=== PATIENT | female | born 1975 | race Caucasian/White ===

== ENCOUNTER 2017-07-16 08:32 | Day surgery (SDC) | payer OTHER ==
[2017-07-16] MEDS: IV RINGERS,LACTATED 1000ML 1,000 ML IV ×2 (07:00)
[~2017-07-16 08:32] MED LIST: HYDROmorphone 2 MG/ML VIAL IV; LIDOCAINE 1% PF 2 ML VIAL. ID; MORPHINE SULFATE 2 MG/ML DISP.SYRIN. IV; ONDANSETRON PF 4 MG/2 ML VIAL. IV; fentaNYL PF VIAL 100 MCG/2 ML VIAL IV
[2017-07-16 09:32] LABS: NEG OBC UR NEG; POS OBC UR POS; U PREG PATIENT NEGATIVE (NEG)
[2017-07-16] MEDS ORDERED: fentaNYL PF VIAL 100 MCG/2 ML VIAL ×4 (10:18→12:13)
[2017-07-16] MEDS ORDERED: ONDANSETRON PF 4 MG/2 ML VIAL. ×2 (10:18)
[2017-07-16] MEDS ORDERED: LIDOCAINE 2% PF Vial for OR 5 ML VIAL. ×2 (10:18)
[2017-07-16] MEDS ORDERED: PROPOFOL 20 ML IV ×2 (10:18)
[2017-07-16] MEDS ORDERED: MIDAZOLAM HCL/PF 2 MG/2 ML VIAL. ×4 (10:18→11:42)
[2017-07-16] MEDS: BUPIVACAINE 0.5% 50 ML VIAL. ×2 (11:53)
[2017-07-16] MEDS: methylPREDNISolone ACETATE 80 MG/ML VIAL. ×2 (11:53)
[2017-07-16] MEDS ORDERED: SEVOFLURANE 16 TO 30 MINUTES. IH ×2 (12:07)
[2017-07-16] MEDS ORDERED: PROCHLORPERAZINE 10 MG/2 ML VIAL. ×2 (12:18)
[2017-07-16] MEDS: PROCHLORPERAZINE 10 MG/2 ML VIAL. IV ×2 (12:24)
[2017-07-16] MEDS: fentaNYL PF VIAL 100 MCG/2 ML VIAL IV ×4 (12:24→12:43)
[2017-07-16] MEDS ORDERED: oxyCODONE/APAP 5/325 1 TAB TABLET ×2 (12:37)
[2017-07-16] MEDS: oxyCODONE/APAP 5/325 1 TAB TABLET PO ×2 (12:43)
== END 2017-07-16 13:53 | disposition home or self-care (01) ==
LOC: SURG 08:32
DX: M75.02 Adhesive capsulitis of left shoulder (principal); Z86.69 Personal history of other diseases of the nervous system and sense organs; Z98.51 Tubal ligation status; Z86.39 Personal history of other endocrine, nutritional and metabolic disease; Z72.89 Other problems related to lifestyle; Z88.6 Allergy status to analgesic agent; Z88.2 Allergy status to sulfonamides; F17.200 Nicotine dependence, unspecified, uncomplicated
CPT/HCPCS: 20610; 81025; 97110-GP; 97162-GP; G8978-CK-GP; G8979-CK-GP; G8980-CK-GP; J0780; J1040; J2250; J2405; J2704; J3010; J3490

== ENCOUNTER 2017-07-30 08:01 | Day surgery (SDC) | payer OTHER ==
[~2017-07-30 08:01] MED LIST changes: -HYDROmorphone 2 MG/ML VIAL IV; +IV RINGERS,LACTATED 1000ML 1,000 ML IV; -MORPHINE SULFATE 2 MG/ML DISP.SYRIN. IV
[2017-07-30 08:47] LABS: NEG OBC UR NEG; POS OBC UR POS; U PREG PATIENT NEGATIVE (NEG)
[2017-07-30] MEDS ORDERED: ROPIVacaine 0.5% PF 30 ML VIAL. (09:27)
[2017-07-30] MEDS ORDERED: DEXAMETHASONE SOD PHOS 20 MG/5 ML VIAL. ×2 (09:28→11:44)
[2017-07-30] MEDS ORDERED: fentaNYL PF VIAL 100 MCG/2 ML VIAL (09:40)
[2017-07-30] MEDS ORDERED: MIDAZOLAM HCL/PF 2 MG/2 ML VIAL. (09:40)
[2017-07-30] MEDS ORDERED: PROPOFOL 20 ML IV (10:35)
[2017-07-30] MEDS ORDERED: LIDOCAINE 2% PF Vial for OR 5 ML VIAL. (10:35)
[2017-07-30] MEDS ORDERED: ONDANSETRON PF 4 MG/2 ML VIAL. (11:45)
[2017-07-30] MEDS ORDERED: PHENYLEPHRINE in 0.9% NACL PF 1 MG/10 ML SYRINGE. IV (11:45)
[2017-07-30] MEDS ORDERED: SEVOFLURANE 61 TO 120 MINUTES. IH (11:48)
[2017-07-30] MEDS: PROCHLORPERAZINE 10 MG/2 ML VIAL. IV (13:35)
[2017-07-30] MEDS: oxyCODONE/APAP 10/325 1 TAB TABLET PO (13:36)
== END 2017-07-30 14:02 | disposition home or self-care (01) ==
LOC: SURG 08:01
DX: S46.012A Strain of muscle(s) and tendon(s) of the rotator cuff of left shoulder, initial encounter (principal); M19.012 Primary osteoarthritis, left shoulder; Z90.710 Acquired absence of both cervix and uterus; I49.9 Cardiac arrhythmia, unspecified; F31.9 Bipolar disorder, unspecified; F20.9 Schizophrenia, unspecified; Z87.891 Personal history of nicotine dependence; Z86.2 Personal history of diseases of the blood and blood-forming organs and certain disorders involving the immune mechanism; Z88.2 Allergy status to sulfonamides; Z88.1 Allergy status to other antibiotic agents; Z88.6 Allergy status to analgesic agent; Z88.8 Allergy status to other drugs, medicaments and biological substances; Z98.890 Other specified postprocedural states; X58.XXXA Exposure to other specified factors, initial encounter; Y93.89 Activity, other specified; Y92.89 Other specified places as the place of occurrence of the external cause; Y99.8 Other external cause status
CPT/HCPCS: 29822; 81025; J0690; J0780; J1100; J2250; J2370; J2405; J2704; J2795; J3010; J7120

== ENCOUNTER 2017-11-24 19:00 | Inpatient (IN) | payer SELFPAY, OTHER ==
[2017-11-24 19:21] LABS: URINE HCG POC HCG NEGATIVE (Negative)
[2017-11-24 19:26] LABS: ADD MAN DIFF? NO; BILIRUBIN,URINE NEGATIVE (NEG); CLARITY,URINE CLEAR; COLOR,URINE YELLOW; GLUCOSE,URINE NEGATIVE (NEG); NITRITE,URINE NEGATIVE (NEG); PH,URINE 7.5; PROTEIN,URINE 30 mg/dL (NEG-TRACE); UROBILINOGEN,URINE 0.2 mg/dL (0.2 mg/dL)
[2017-11-24 19:31] LABS: BASO % 0 % (0-3); EOS % 0 % (0-3); HEMATOCRIT 30.8 % (36.0-47.0); HEMOGLOBIN 10.3 g/dL (12.0-15.5); LYMPH # 1.8 x10^3/uL (1.0-4.8); LYMPH % 20 % (24-48); MEAN CORPUSCULAR HEMOGLOBIN 26 pg (25-35); MEAN CORPUSCULAR HGB CONC 33 g/dL (31-37); MEAN CORPUSCULAR VOLUME 79 fL (79-100); MONO # 0.5 x10^3/uL (0.0-1.1); MONO % 6 % (0-9); NEUT # 6.4 x10^3uL (1.8-7.7); NEUT % 74 % (31-73); PLATELET COUNT 307 x10^3/uL (140-400); RED CELL DISTRIBUTION WIDTH 14.7 % (11.5-14.5); WHITE BLOOD COUNT 8.8 x10^3/uL (4.0-11.0)
[2017-11-24 19:41] LABS: ANION GAP 6 (6-14); BLOOD UREA NITROGEN 12 mg/dL (7-20); BUN/CREATININE RATIO 17 (6-20); CALCIUM 8.6 mg/dL (8.5-10.1); CARBON DIOXIDE 29 mmol/L (21-32); CHLORIDE 104 mmol/L (98-107); CREATININE 0.7 mg/dL (0.6-1.0); GFR 90.9; GLUCOSE 94 mg/dL (70-99); POTASSIUM 3.3 mmol/L (3.5-5.1); SODIUM 139 mmol/L (136-145)
[2017-11-24 19:47] LABS: ALBUMIN 3.3 g/dL (3.4-5.0); ALBUMIN/GLOBULIN RATIO 0.9 (1.0-1.7); ALK PHOS 94 U/L (46-116); ALT (SGPT) 18 U/L (14-59); AST (SGOT) 22 U/L (15-37); LIPASE 168 U/L (73-393); TOTAL BILIRUBIN 0.5 mg/dL (0.2-1.0); TOTAL PROTEIN 7.1 g/dL (6.4-8.2)
[2017-11-24 19:54] LABS: BACTERIA,URINE MODERATE /HPF (0-FEW); SQUAMOUS EPITHELIAL CELL,UR FEW /LPF; WBC,URINE >40 /HPF (0-4)
[2017-11-24] MEDS: IV NORMAL SALINE 1000ML BAG 1,000 ML IV ×2 (19:55→22:55)
[2017-11-24] MEDS: fentaNYL PF VIAL 100 MCG/2 ML VIAL IV ×3 (19:55→22:02)
[2017-11-24] MEDS: ONDANSETRON PF 4 MG/2 ML VIAL. IV (19:55)
[2017-11-24] MEDS ORDERED: CONTRAST GIVEN. MC (20:15)
[2017-11-24] MEDS: IOHEXOL 300 MG/ML 100ML VIAL. IV (20:23)
[2017-11-25] MEDS: MORPHINE SULFATE 2 MG/ML DISP.SYRIN. IV ×7 (00:03→17:48)
[2017-11-25 05:12] LABS: ADD MAN DIFF? NO
[2017-11-25 05:18] LABS: BASO % 0 % (0-3); EOS % 0 % (0-3); HEMATOCRIT 28.1 % (36.0-47.0); HEMOGLOBIN 9.2 g/dL (12.0-15.5); LYMPH # 1.6 x10^3/uL (1.0-4.8); LYMPH % 24 % (24-48); MEAN CORPUSCULAR HEMOGLOBIN 26 pg (25-35); MEAN CORPUSCULAR HGB CONC 33 g/dL (31-37); MEAN CORPUSCULAR VOLUME 80 fL (79-100); MONO # 0.4 x10^3/uL (0.0-1.1); MONO % 6 % (0-9); NEUT # 4.4 x10^3uL (1.8-7.7); NEUT % 69 % (31-73); PLATELET COUNT 237 x10^3/uL (140-400); RED BLOOD COUNT 3.49 x10^6/uL (3.50-5.40); RED CELL DISTRIBUTION WIDTH 14.3 % (11.5-14.5); WHITE BLOOD COUNT 6.4 x10^3/uL (4.0-11.0)
[2017-11-25 05:39] LABS: ANION GAP 6 (6-14); BLOOD UREA NITROGEN 9 mg/dL (7-20); CALCIUM 7.6 mg/dL (8.5-10.1); CARBON DIOXIDE 28 mmol/L (21-32); CHLORIDE 106 mmol/L (98-107); CREATININE 0.6 mg/dL (0.6-1.0); GFR 108.6; GLUCOSE 90 mg/dL (70-99); POTASSIUM 3.8 mmol/L (3.5-5.1); SODIUM 140 mmol/L (136-145)
[2017-11-25] MEDS: ONDANSETRON PF 4 MG/2 ML VIAL. IV (07:28)
[2017-11-25] MEDS: IV NORMAL SALINE 1000ML BAG 1,000 ML IV ×2 (09:54→17:46)
[2017-11-25] MEDS: TAMSULOSIN 0.4 MG CAP.ER.24H. PO (11:07)
[2017-11-25] MEDS: cefTRIAXone IV Push 1 GM VIAL. IVP (11:07)
[2017-11-25] MEDS: PROCHLORPERAZINE 10 MG/2 ML VIAL. IV (12:36)
[2017-11-25] MEDS ORDERED: PROPOFOL 20 ML IV (15:04)
[2017-11-25] MEDS ORDERED: LIDOCAINE 2% PF Vial for OR 5 ML VIAL. (15:04)
[2017-11-25] MEDS ORDERED: ONDANSETRON PF 4 MG/2 ML VIAL. (15:04)
[2017-11-25] MEDS ORDERED: FAMOTIDINE 20 MG/2 ML VIAL (15:04)
[2017-11-25] MEDS ORDERED: DEXAMETHASONE SOD PHOS 20 MG/5 ML VIAL. (15:04)
[2017-11-25] MEDS ORDERED: MIDAZOLAM HCL/PF 2 MG/2 ML VIAL. (15:05)
[2017-11-25] MEDS ORDERED: fentaNYL PF VIAL 100 MCG/2 ML VIAL (15:05)
[2017-11-25] MEDS ORDERED: SUCCINYLCHOLINE 200 MG/10 ML VIAL. (15:05)
[2017-11-25] MEDS ORDERED: ROCURONIUM 50 MG/5 ML VIAL. (15:05)
[2017-11-25] MEDS: IV RINGERS,LACTATED 1000ML 1,000 ML IV (15:07)
[2017-11-25] MEDS ORDERED: fentaNYL PF VIAL 100 MCG/2 ML VIAL IV ×2 (15:15)
[2017-11-25] MEDS ORDERED: LIDOCAINE 1% PF 2 ML VIAL. ID (15:15)
[2017-11-25] MEDS ORDERED: PROCHLORPERAZINE 10 MG/2 ML VIAL. IV (15:15)
[2017-11-25] MEDS ORDERED: ONDANSETRON PF 4 MG/2 ML VIAL. IV (15:15)
[2017-11-25] MEDS: IOHEXOL 300 MG/ML 100ML VIAL. (15:48)
[2017-11-25] MEDS ORDERED: DESFLURANE 31 TO 60 MINUTES IH (16:07)
[2017-11-25] MEDS: MORPHINE SULFATE 4 MG/ML DISP.SYRIN. IV ×2 (19:58→22:56)
[2017-11-25] MEDS: LACTOBACILLUS RHAMNOSUS GG 1 CAPSULE. PO (21:58)
[2017-11-25] MEDS: ACETAMINOPHEN 325 MG TABLET. PO (21:58)
[2017-11-25] MEDS: PHENAZOPYRIDINE 200 MG TABLET. PO (21:58)
[2017-11-26 00:13] LABS: MRSA BY PCR Negative (Negative)
[2017-11-26] MEDS: MORPHINE SULFATE 4 MG/ML DISP.SYRIN. IV ×7 (01:56→18:53)
[2017-11-26] MEDS: IV NORMAL SALINE 1000ML BAG 1,000 ML IV ×2 (04:08→14:41)
[2017-11-26] MEDS: PHENAZOPYRIDINE 200 MG TABLET. PO ×3 (08:04→21:08)
[2017-11-26] MEDS: TAMSULOSIN 0.4 MG CAP.ER.24H. PO (08:04)
[2017-11-26] MEDS: LACTOBACILLUS RHAMNOSUS GG 1 CAPSULE. PO ×2 (08:04→21:08)
[2017-11-26] MEDS: ONDANSETRON PF 4 MG/2 ML VIAL. IV ×2 (11:57→18:53)
[2017-11-26] MEDS: cefTRIAXone IV Push 1 GM VIAL. IVP (11:58)
[2017-11-26] MEDS: KETOROLAC 30 MG/ML INJ. IV ×2 (12:46→21:09)
[2017-11-26] MEDS: ACETAMINOPHEN 325 MG TABLET. PO ×2 (12:46→21:09)
[2017-11-27] MEDS: IV NORMAL SALINE 1000ML BAG 1,000 ML IV ×2 (00:16→10:15)
[2017-11-27] MEDS: KETOROLAC 30 MG/ML INJ. IV (03:25)
[2017-11-27] MEDS ORDERED: PROMETHAZINE 12.5 MG TABLET. PO (08:30)
[2017-11-27] MEDS: LACTOBACILLUS RHAMNOSUS GG 1 CAPSULE. PO (08:40)
[2017-11-27] MEDS: TAMSULOSIN 0.4 MG CAP.ER.24H. PO (08:42)
[2017-11-27] MEDS: PHENAZOPYRIDINE 200 MG TABLET. PO (08:43)
[2017-11-27] MEDS: ACETAMINOPHEN 325 MG TABLET. PO (08:44)
[2017-11-27] MEDS: KETOROLAC TROMETHAMINE 10 MG TABLET PO (08:45)
[2017-11-27] MEDS: cefTRIAXone IV Push 1 GM VIAL. IVP (12:05)
== END 2017-11-27 14:44 | disposition home or self-care (01) | DRG 669 ==
LOC: ER 19:00 → 5 SOUTH 21:47
PROC: 0TC78ZZ Extirpation of Matter from Left Ureter, Via Natural or Artificial Opening Endoscopic (ICD-10-PCS; principal; 2017-11-25 15:00)
PROC: 0T778DZ Dilation of Left Ureter with Intraluminal Device, Via Natural or Artificial Opening Endoscopic (ICD-10-PCS; 2017-11-25 15:00)
DX: N20.2 Calculus of kidney with calculus of ureter (principal); N12 Tubulo-interstitial nephritis, not specified as acute or chronic; Z88.6 Allergy status to analgesic agent; Z88.2 Allergy status to sulfonamides
CPT/HCPCS: 36415; 74177; 74420; 76856; 80048; 80053; 81001; 81025; 83690; 85025; 87086; 87186; 87641; 96361; 96365; 96375; 96376; 99285; 99285-25; A7015; C1769; C2617; J0330; J0690; J0696; J0780; J1100; J1885; J2001; J2250; J2270; J2405; J2704; J3010; J7030; Q9967; S0028

== ENCOUNTER 2018-11-24 11:25 | Emergency (ER) | payer SELFPAY ==
[~2018-11-24] VITALS: Ht 162.6 cm; Wt 54.0 kg
[~2018-11-24 11:25] MED LIST changes: +CYCL10TA2 PO; +GABA300C18 PO; +IBUP-1007 PO; +IBUP1TAB84 PO; -IV RINGERS,LACTATED 1000ML 1,000 ML IV; -LIDOCAINE 1% PF 2 ML VIAL. ID; -ONDANSETRON PF 4 MG/2 ML VIAL. IV; +OXYC1TAB15 PO; +OXYC1TAB22 PO; -fentaNYL PF VIAL 100 MCG/2 ML VIAL IV
[2018-11-24 11:53] LABS: BILIRUBIN,URINE NEGATIVE (NEG); CLARITY,URINE CLEAR; COLOR,URINE YELLOW; NITRITE,URINE NEGATIVE (NEG); PROTEIN,URINE 100 mg/dL (NEG-TRACE); UROBILINOGEN,URINE 0.2 mg/dL (0.2 mg/dL)
[2018-11-24] MEDS ORDERED: IV NORMAL SALINE 1000ML BAG 1,000 ML IV ONE (12:00)
[2018-11-24 12:08] LABS: BACTERIA,URINE MODERATE /HPF (0-FEW)
[2018-11-24 12:09] LABS: SQUAMOUS EPITHELIAL CELL,UR FEW /LPF
[2018-11-24 12:17] LABS: CALCIUM 8.8 mg/dL (8.5-10.1); CREATININE 0.7 mg/dL (0.6-1.0); GFR 90.5; POTASSIUM 3.9 mmol/L (3.5-5.1)
[2018-11-24 12:19] LABS: BASO % 0 % (0-3); EOS % 0 % (0-3); HEMATOCRIT 32.9 % (36.0-47.0); HEMOGLOBIN 9.9 g/dL (12.0-15.5); LYMPH # 1.3 x10^3/uL (1.0-4.8); LYMPH % 23 % (24-48); MEAN CORPUSCULAR HEMOGLOBIN 21 pg (25-35); MEAN CORPUSCULAR HGB CONC 30 g/dL (31-37); MEAN CORPUSCULAR VOLUME 69 fL (79-100); MONO # 0.3 x10^3/uL (0.0-1.1); MONO % 6 % (0-9); NEUT # 4.1 x10^3uL (1.8-7.7); NEUT % 71 % (31-73); PLATELET COUNT 249 x10^3/uL (140-400); RED BLOOD COUNT 4.76 x10^6/uL (3.50-5.40); RED CELL DISTRIBUTION WIDTH 18.6 % (11.5-14.5); WHITE BLOOD COUNT 5.8 x10^3/uL (4.0-11.0)
[2018-11-24 12:23] LABS: ALBUMIN 3.7 g/dL (3.4-5.0); ALBUMIN/GLOBULIN RATIO 0.9 (1.0-1.7); TOTAL BILIRUBIN 0.4 mg/dL (0.2-1.0); TOTAL PROTEIN 7.7 g/dL (6.4-8.2)
[2018-11-24] MEDS ORDERED: ONDANSETRON PF 4 MG/2 ML VIAL. IV ONE ×2 (12:30)
[2018-11-24] MEDS ORDERED: KETOROLAC 30 MG/ML VIAL. IV ONE (12:30)
--- NOTE | 2018-11-24 13:00 | RAD ---
Examination: CT ABDOMEN PELVIS WO CONTRAST History: Left flank pain Comparison/Correlation: 11/24/2017 CT abdomen and pelvis with IV contrast Findings: Axial images of the abdomen and pelvis were obtained. Sagittal and coronal reformatted images provided. Visualized lung bases are unremarkable. Liver, spleen, pancreas, adrenal glands, and gallbladder fossa are unremarkable on this noncontrast exam. Renal contours are unremarkable. No hydronephrosis or perinephric stranding. No hydroureter. No radiopaque collecting system calculi. Previously described calculus at the left ureterovesical junction level is no longer seen. Urinary bladder is mostly decompressed. Subtle surrounding stranding is questioned. This may alternatively be artifactual. Moderate quantity of stool in the colon is present. Appendix is unremarkable. No ascites or pelvic free fluid. No extraluminal gas. No bowel obstruction. No enlarged abdominal or pelvic lymph nodes. Impression: No hydronephrosis or nephrolithiasis. No collecting system obstruction. Urinary bladder is decompressed. Subtle surrounding stranding and wall thickening are questioned. Correlate for possibility of cystitis. PQRS Compliance Statement: One or more of the following individualized dose reduction techniques were utilized for this examination: 1. Automated exposure control 2. Adjustment of the mA and/or kV according to patient size 3. Use of iterative reconstruction technique Electronically signed by: Armando Hodges MD (11/24/2018 12:57 PM) [id number]
[2018-11-24] MEDS ORDERED: CIPR500T94 PO (13:22)
[2018-11-24] MEDS ORDERED: PHEN-318 PO (13:22)
--- NOTE | 2018-11-24 13:23 | PHYS DOC ---
Past Medical History Past Medical History: Kidney Stone, Other Additional Past Medical Histor: ETOH ABUSE Past Surgical History: Tubal ligation, Other Additional Past Surgical Histo: SHOULDER SURGERY,KIDNEY STONE REMOVAL/STENT PLACEMENT & REMOVAL,EAR Alcohol Use: Heavy Additional Information: DRINKS 1 PINT DAILY Drug Use: Marijuana Adult General Chief Complaint Chief Complaint: FLANK PAIN HPI HPI 43-year-old female with a history of kidney stones presents with a 2 day history of progressive left flank pain. She states the pain started in her left flank and now is radiating to her groin. She states exactly 1 year ago today she had a kidney stone. She does describe burning with urination and urinary frequency. She denies any fever chills or sweats. She's had no nausea or vomiting.[] Review of Systems Review of Systems Constitutional: Denies fever or chills [] Eyes: Denies change in visual acuity, redness, or eye pain [] HENT: Denies nasal congestion or sore throat [] Respiratory: Denies cough or shortness of breath [] Cardiovascular: No additional information not addressed in HPI [] GI: Denies abdominal pain, nausea, vomiting, bloody stools or diarrhea [] : Per history of present illness[] Musculoskeletal: Denies back pain or joint pain [] Integument: Denies rash or skin lesions [] Neurologic: Denies headache, focal weakness or sensory changes [] Endocrine: Denies polyuria or polydipsia [] All other systems were reviewed and found to be within normal limits, except as documented in this note. Current Medications Current Medications Current Medications Medications (Trade) Dose Ordered Sig/Xavi Start Time Stop Time Status Last Admin Dose Admin Ceftriaxone Sodium (Rocephin) 1 gm 1X ONCE 11/24/18 13:30 11/24/18 13:31 11/24/18 13:16 1 GM Ketorolac Tromethamine (Toradol 30mg Vial) 30 mg 1X ONCE 11/24/18 12:30 11/24/18 12:31 DC 11/24/18 12:13 30 MG Ondansetron HCl (Zofran) 4 mg 1X ONCE 11/24/18 12:30 11/24/18 12:31 DC Sodium Chloride 1,000 ml @ 1,000 mls/hr 1X ONCE 11/24/18 12:00 11/24/18 12:59 DC 11/24/18 12:07 1,000 MLS/HR Allergies Allergies Allergies Coded Allergies Type Severity Reaction Last Updated Verified Sulfa (Sulfonamide Antibiotics) Allergy Intermediate Swelling 07/30/17 Yes prednisone Allergy Intermediate Hives 07/30/17 Yes codeine Adverse Reaction Intermediate Itching 07/30/17 Yes Physical Exam Physical Exam Constitutional: Well developed, well nourished, appears uncomfortable but nontoxic. [] HENT: Normocephalic, atraumatic, bilateral external ears normal, oropharynx moist, no oral exudates, nose normal. [] Eyes: PERRLA, EOMI, conjunctiva normal, no discharge. [] Neck: Normal range of motion, no tenderness, supple, no stridor. [] Cardiovascular:Heart rate regular rhythm, no murmur [] Lungs & Thorax: Bilateral breath sounds clear to auscultation [] Abdomen: Mild suprapubic tender to palp no rebound or guarding no CVA tenderness. [] Skin: Warm, dry, no erythema, no rash. [] Back: No tenderness, no CVA tenderness. [] Extremities: No tenderness, no cyanosis, no clubbing, ROM intact, no edema. [] Neurologic: Alert and oriented X 3, normal motor function, normal sensory function, no focal deficits noted. [] Psychologic: Affect normal, judgement normal, mood normal. [] Current Patient Data Vital Signs Vital Signs Date Time Temp Pulse Resp B/P (MAP) Pulse Ox O2 Delivery O2 Flow Rate FiO2 11/24/18 11:30 98.0 74 20 103/77 (86) 100 Room Air 98.0 Lab Values Laboratory Tests Test 11/24/18 11:30 11/24/18 11:44 11/24/18 11:54 Urine Collection Type Void Urine Color Yellow Urine Clarity Clear Urine pH 6.0 Urine Specific [place] 1.015 Urine Protein 100 mg/dL (NEG-TRACE) Urine Glucose (UA) Negative mg/dL (NEG) Urine Ketones (Stick) Negative mg/dL (NEG) Urine Blood Small (NEG) Urine Nitrite Negative (NEG) Urine Bilirubin Negative (NEG) Urine Urobilinogen Dipstick 0.2 mg/dL (0.2 mg/dL) Urine Leukocyte Esterase Large (NEG) Urine RBC 6-10 /HPF (0-2) Urine WBC 5-10 /HPF (0-4) Urine Squamous Epithelial Cells Few /LPF Urine Bacteria Moderate /HPF (0-FEW) POC Urine HCG, Qualitative Hcg negative (Negative) White Blood Count 5.8 x10^3/uL (4.0-11.0) Red Blood Count 4.76 x10^6/uL (3.50-5.40) Hemoglobin 9.9 g/dL (12.0-15.5) L Hematocrit 32.9 % (36.0-47.0) L Mean Corpuscular Volume 69 fL (79-100) L Mean Corpuscular Hemoglobin 21 pg (25-35) L Mean Corpuscular Hemoglobin Concent 30 g/dL (31-37) L Red Cell Distribution Width 18.6 % (11.5-14.5) H Platelet Count 249 x10^3/uL (140-400) Neutrophils (%) (Auto) 71 % (31-73) Lymphocytes (%) (Auto) 23 % (24-48) L Monocytes (%) (Auto) 6 % (0-9) Eosinophils (%) (Auto) 0 % (0-3) Basophils (%) (Auto) 0 % (0-3) Neutrophils # (Auto) 4.1 x10^3uL (1.8-7.7) Lymphocytes # (Auto) 1.3 x10^3/uL (1.0-4.8) Monocytes # (Auto) 0.3 x10^3/uL (0.0-1.1) Eosinophils # (Auto) 0.0 x10^3/uL (0.0-0.7) Basophils # (Auto) 0.0 x10^3/uL (0.0-0.2) Platelet Estimate Pending Sodium Level 138 mmol/L (136-145) Potassium Level 3.9 mmol/L (3.5-5.1) Chloride Level 103 mmol/L (98-107) Carbon Dioxide Level 25 mmol/L (21-32) Anion Gap 10 (6-14) Blood Urea Nitrogen 13 mg/dL (7-20) Creatinine 0.7 mg/dL (0.6-1.0) Estimated GFR (Cockcroft-Gault) 90.5 BUN/Creatinine Ratio 19 (6-20) Glucose Level 85 mg/dL (70-99) Calcium Level 8.8 mg/dL (8.5-10.1) Total Bilirubin 0.4 mg/dL (0.2-1.0) Aspartate Amino Transferase (AST) 16 U/L (15-37) Alanine Aminotransferase (ALT) 19 U/L (14-59) Alkaline Phosphatase 101 U/L (46-116) Total Protein 7.7 g/dL (6.4-8.2) Albumin 3.7 g/dL (3.4-5.0) Albumin/Globulin Ratio 0.9 (1.0-1.7) L Lipase 145 U/L (73-393) Laboratory Tests 11/24/18 11:54 Laboratory Tests 11/24/18 11:54 EKG EKG [] Radiology/Procedures Radiology/Procedures [] Course & Med Decision Making Course & Med Decision Making Pertinent Labs and Imaging studies reviewed. (See chart for details) [ED course: Evaluation reveals a 43-year-old female with left flank pain. It is evident that she has a urinary tract infection. The CT scan does not show evidence of kidney stone. Treated her with IV fluids and Rocephin during her stay in the department she'll be started on antibiotics for 1 week as an outpatient.] Dragon Disclaimer Dragon Disclaimer This electronic medical record was generated, in whole or in part, using a voice recognition dictation system. Departure Departure Impression: Primary Impression: Urinary tract infection Disposition: 01 HOME, SELF-CARE Condition: IMPROVED Referrals: NO PCP (PCP) Patient Instructions: Urinary Tract Infection Additional Instructions: Drink plenty of fluids. Take your antibiotics as directed. Return to the emergency department with any new or concerning symptoms Scripts Phenazopyridine Hcl (PYRIDIUM) 200 Mg Tablet 200 MG PO Q8HRS PRN for DYSURIA, #10 TAB Prov: CLARISSE CORNEJO DO 11/24/18 Ciprofloxacin Hcl (CIPRO) 500 Mg Tablet 1 TAB PO BID PRN for UTI, #14 TAB Prov: CLARISSE CORNEJO DO 11/24/18 Problem Qualifiers Primary Impression: Urinary tract infection Urinary tract infection type: acute cystitis Hematuria presence: without hematuria Qualified Codes: N30.00 - Acute cystitis without hematuria CLARISSE CORNEJO DO Nov 24, 2018 13:23
[2018-11-24 13:30] VITALS: BP 119/61
[2018-11-24] MEDS ORDERED: cefTRIAXone IV Push 1 GM VIAL. IVP ONE (13:30)
[2018-11-24 13:42] LABS: HYPOCHROMIA PRESENT; MICROCYTOSIS PRESENT; PLT ESTIMATE ADEQUATE (ADEQUATE)
== END 2018-11-24 13:33 | disposition home or self-care (01) ==
LOC: ER 11:25
DX: N30.00 Acute cystitis without hematuria (principal); F10.20 Alcohol dependence, uncomplicated; Y90.9 Presence of alcohol in blood, level not specified; Z98.51 Tubal ligation status; Z88.2 Allergy status to sulfonamides; Z88.5 Allergy status to narcotic agent; Z88.8 Allergy status to other drugs, medicaments and biological substances
CPT/HCPCS: 36415; 74176; 80053; 81001; 81025; 83690; 85025; 87086; 96374; 96375; 99285; J0696; J1885; J2405; J7030

== ENCOUNTER 2019-10-15 15:18 | Emergency (ER) | payer MEDICAID, OTHER ==
[~2019-10-15] VITALS: Ht 160 cm; Wt 59.0 kg
[~2019-10-15 15:18] MED LIST changes: +CIPR500T94 PO; +PHEN-318 PO
[2019-10-15] MEDS ORDERED: IV NORMAL SALINE 1000ML BAG 1,000 ML IV ONE (15:45)
[2019-10-15 16:04] LABS: BASO % 0 % (0-3); EOS # 0.1 x10^3/uL (0.0-0.7); EOS % 1 % (0-3); HEMATOCRIT 30.3 % (36.0-47.0); HEMOGLOBIN 9.5 g/dL (12.0-15.5); LYMPH # 1.2 x10^3/uL (1.0-4.8); LYMPH % 14 % (24-48); MEAN CORPUSCULAR HEMOGLOBIN 22 pg (25-35); MEAN CORPUSCULAR HGB CONC 31 g/dL (31-37); MEAN CORPUSCULAR VOLUME 70 fL (79-100); MONO # 0.6 x10^3/uL (0.0-1.1); MONO % 7 % (0-9); NEUT # 6.4 x10^3/uL (1.8-7.7); NEUT % 78 % (31-73); PLATELET COUNT 258 x10^3/uL (140-400); RED BLOOD COUNT 4.32 x10^6/uL (3.50-5.40); RED CELL DISTRIBUTION WIDTH 18.3 % (11.5-14.5); WHITE BLOOD COUNT 8.2 x10^3/uL (4.0-11.0)
[2019-10-15 16:16] LABS: BILIRUBIN,URINE NEGATIVE (NEG); CLARITY,URINE CLEAR; COLOR,URINE YELLOW; NITRITE,URINE NEGATIVE (NEG); PH,URINE 7.5 (<5.0-8.0); PROTEIN,URINE 30 mg/dL (NEG-TRACE); UROBILINOGEN,URINE 0.2 mg/dL (0.2 mg/dL)
[2019-10-15 16:25] LABS: CALCIUM 8.5 mg/dL (8.5-10.1); CREATININE 0.7 mg/dL (0.6-1.0); GFR 90.1; POTASSIUM 3.4 mmol/L (3.5-5.1)
[2019-10-15 16:26] LABS: HYALINE CASTS, URINE FEW /HPF
[2019-10-15 16:27] LABS: BACTERIA,URINE 0 /HPF (0-FEW); WBC,URINE TNTC /HPF (0-4)
--- NOTE | 2019-10-15 16:29 | RAD ---
CHEST AP ONLY History: Weakness Comparison: November 14, 2011 Findings: No consolidation or pleural effusion. Normal heart size. No pneumothorax. Impression: 1. No acute cardiopulmonary process. Electronically signed by: Favian Diaz DO (10/15/2019 4:26 PM) [id number]
[2019-10-15 16:32] LABS: ALBUMIN 3.1 g/dL (3.4-5.0); ALBUMIN/GLOBULIN RATIO 0.8 (1.0-1.7); MAGNESIUM 1.8 mg/dL (1.8-2.4); TOTAL BILIRUBIN 0.3 mg/dL (0.2-1.0); TOTAL PROTEIN 7.2 g/dL (6.4-8.2)
[2019-10-15 16:36] LABS: PREG TEST PT QUAL NEGATIVE (NEG)
[2019-10-15 16:44] LABS: CREATINE KINASE 40 U/L (26-192)
[2019-10-15 16:55] LABS: PLT ESTIMATE ADEQUATE (ADEQUATE)
--- NOTE | 2019-10-15 16:55 | PHYS DOC ---
Past Medical History Past Medical History: Alcoholism, Kidney Stone, Other Additional Past Medical Histor: ETOH ABUSE Past Surgical History: Tubal ligation, Other Additional Past Surgical Histo: SHOULDER SURGERY,KIDNEY STONE REMOVAL/STENT PLACEMENT & REMOVAL,EAR Smoking Status: Former Smoker Alcohol Use: Occasionally Drug Use: Marijuana Social History Narrative: cbd oil General Adult EDM: Chief Complaint: FEVER HPI: HPI: Patient is a 44 year old female presents with multiple complaints over the last 4-5 days. Reports she went to [facility] on Saturday and now has had several symptoms that she feels might be secondary to COVID19. Patient reports subjective fever/chills. Reports generalized malaise and body aches. Reports headache and SOA. Patient reports today she felt very dizzy and almost passed out. Reports concern for dehydration. Patient has also felt that she might be constipated and tried to digitally express some stool but all she got was "mucus". Denies known sick contacts. Denies direct exposure to COVID19 + individual or PUI. Denies . Review of Systems: Review of Systems: Constitutional: Reports subjective fever/chills and generalized malaise Eyes: Denies change in visual acuity, redness, or eye pain HENT: Denies nasal congestion or sore throat Respiratory: Denies cough; reports shortness of breath Cardiovascular: Reports chest pressure and palpitations GI: Denies abdominal pain; reports nausea and constipation : Denies dysuria or hematuria Musculoskeletal: Denies back pain or joint pain Integument: Denies rash or skin lesions Neurologic: Reports headache and near syncopal episode; denies focal weakness or sensory changes Complete systems were reviewed and found to be within normal limits, except as documented in this note. Heart Score: HEART Score for Chest Pain: HEART Score for Chest Pain Response (Comments) Value History Slighlty/Non-Suspicious 0 ECG Normal 0 Age >45 - < 65 1 Risk Factors 1 or 2 Risk Factors 1 Troponin < Normal Limit 0 Total 2 Risk Factors: Risk Factors: DM, Current or recent (<one month) smoker, HTN, HLP, family history of CAD, obesity. Risk Scores: Score 0 - 3: 2.5% MACE over next 6 weeks - Discharge Home Score 4 - 6: 20.3% MACE over next 6 weeks - Admit for Clinical Observation Score 7 - 10: 72.7% MACE over next 6 weeks - Early Invasive Strategies Current Medications: Current Medications Medications (Trade) Dose Ordered Sig/Xavi Start Time Stop Time Status Last Admin Dose Admin Lorazepam (Ativan Inj) 0.5 mg 1X ONCE 10/15/19 16:00 10/15/19 16:01 DC 10/15/19 16:03 0.5 MG Sodium Chloride 1,000 ml @ 1,000 mls/hr 1X ONCE 10/15/19 15:45 10/15/19 16:44 DC 10/15/19 16:03 1,000 MLS/HR Allergies: Allergies: Allergies Coded Allergies Type Severity Reaction Last Updated Verified Sulfa (Sulfonamide Antibiotics) Allergy Intermediate Swelling 07/30/17 Yes prednisone Allergy Intermediate Hives 07/30/17 Yes codeine Adverse Reaction Intermediate Itching 07/30/17 Yes Physical Exam: PE: Constitutional: Well developed, well nourished, no acute distress, non-toxic appearance HENT: Normocephalic, atraumatic, nose normal Eyes: EOMI, PERRLA, conjunctiva normal, no discharge Neck: Normal range of motion, no tenderness, supple, no meningeal signs Cardiovascular: Heart rate normal and regular rhythm Lungs & Thorax: Bilateral breath sounds clear to auscultation, no respiratory distress Abdomen: Soft, no tenderness, no guarding/rebound tenderness/distention Skin: Warm, dry, no erythema, multiple pockmarks to BUE concerning for drug abuse Extremities: No tenderness, ROM intact, no edema Neurologic: Alert and oriented X 3, motor and sensory function intact, no focal deficits noted Psychologic: Affect normal, judgement normal Current Patient Data: Labs: Laboratory Tests Test 10/15/19 15:52 10/15/19 16:00 White Blood Count 8.2 x10^3/uL (4.0-11.0) Red Blood Count 4.32 x10^6/uL (3.50-5.40) Hemoglobin 9.5 g/dL (12.0-15.5) L Hematocrit 30.3 % (36.0-47.0) L Mean Corpuscular Volume 70 fL (79-100) L Mean Corpuscular Hemoglobin 22 pg (25-35) L Mean Corpuscular Hemoglobin Concent 31 g/dL (31-37) Red Cell Distribution Width 18.3 % (11.5-14.5) H Platelet Count 258 x10^3/uL (140-400) Neutrophils (%) (Auto) 78 % (31-73) H Lymphocytes (%) (Auto) 14 % (24-48) L Monocytes (%) (Auto) 7 % (0-9) Eosinophils (%) (Auto) 1 % (0-3) Basophils (%) (Auto) 0 % (0-3) Neutrophils # (Auto) 6.4 x10^3/uL (1.8-7.7) Lymphocytes # (Auto) 1.2 x10^3/uL (1.0-4.8) Monocytes # (Auto) 0.6 x10^3/uL (0.0-1.1) Eosinophils # (Auto) 0.1 x10^3/uL (0.0-0.7) Basophils # (Auto) 0.0 x10^3/uL (0.0-0.2) Platelet Estimate Pending Sodium Level 136 mmol/L (136-145) Potassium Level 3.4 mmol/L (3.5-5.1) L Chloride Level 99 mmol/L (98-107) Carbon Dioxide Level 27 mmol/L (21-32) Anion Gap 10 (6-14) Blood Urea Nitrogen 5 mg/dL (7-20) L Creatinine 0.7 mg/dL (0.6-1.0) Estimated GFR (Cockcroft-Gault) 90.1 BUN/Creatinine Ratio 7 (6-20) Glucose Level 94 mg/dL (70-99) Lactic Acid Level 1.9 mmol/L (0.4-2.0) Calcium Level 8.5 mg/dL (8.5-10.1) Magnesium Level 1.8 mg/dL (1.8-2.4) Total Bilirubin 0.3 mg/dL (0.2-1.0) Aspartate Amino Transferase (AST) 14 U/L (15-37) L Alanine Aminotransferase (ALT) 26 U/L (14-59) Alkaline Phosphatase 118 U/L (46-116) H Creatine Kinase 40 U/L (26-192) Creatine Kinase MB (Mass) < 0.5 ng/mL (0.0-3.6) Creatine Kinase MB Relative Index % (0-4) Troponin I Quantitative < 0.017 ng/mL (0.000-0.055) Total Protein 7.2 g/dL (6.4-8.2) Albumin 3.1 g/dL (3.4-5.0) L Albumin/Globulin Ratio 0.8 (1.0-1.7) L Serum Test, Qualitative Negative (NEG) Urine Collection Type U cath Urine Color Yellow Urine Clarity Clear Urine pH 7.5 (<5.0-8.0) Urine Specific [place] 1.015 (1.000-1.030) Urine Protein 30 mg/dL (NEG-TRACE) Urine Glucose (UA) Negative mg/dL (NEG) Urine Ketones (Stick) Negative mg/dL (NEG) Urine Blood Small (NEG) Urine Nitrite Negative (NEG) Urine Bilirubin Negative (NEG) Urine Urobilinogen Dipstick 0.2 mg/dL (0.2 mg/dL) Urine Leukocyte Esterase Large (NEG) Urine RBC 3-5 /HPF (0-2) Urine WBC Tntc /HPF (0-4) Urine Transitional Epithelial Cells Few /LPF Urine Bacteria 0 /HPF (0-FEW) Urine Hyaline Casts Few /HPF Urine Mucus Marked /LPF Laboratory Tests 10/15/19 15:52 Laboratory Tests 10/15/19 15:52 Vital Signs: Vital Signs Date Time Temp Pulse Resp B/P (MAP) Pulse Ox O2 Delivery O2 Flow Rate FiO2 10/15/19 15:27 99.9 116 20 119/64 (82) 100 Room Air 99.9 EKG: EKG: @1556 Sinus tachycardia at 110bpm, NO ST elevation, QRS 80ms, QT/QTc 298/408ms Radiology/Procedures: Radiology/Procedures: PROCEDURE: CHEST AP ONLY CHEST AP ONLY History: Weakness Comparison: November 14, 2011 Findings: No consolidation or pleural effusion. Normal heart size. No pneumothorax. Impression: 1. No acute cardiopulmonary process. Electronically signed by: Favian Diaz DO (10/15/2019 4:26 PM) [id number] Course & Med Decision Making: Course & Med Decision Making Pertinent Labs and Imaging studies reviewed. (See chart for details) Patient presents with multiple complaints x 4 days. Patient neurologically intact. No distress. Afebrile. EKG stable. Labs obtained and posted to chart. CXR without acute process. UA with signs of infection. Empiric antibiotics given. Cannot exclude COVID19. COVID test pending. Of note patient also with multiple skin marking concerning for drug abuse. Patient originally denies. UDS positive for methamphetamines. Patient stable for discharge home with outpatient follow-up with PCP. Discussed findings and plan with patient, who acknowledges understanding and agreement. Educated to self quarantine. COVID-19 CRITERIA: The patient was evaluated during the global COVID-19 pandemic, and that diagnosis was suspected/considered upon their initial presentation. Their evaluation, treatment and testing was consistent with current guidelines for patients who present with complaints or symptoms that may be related to COVID-19. Dragon Disclaimer: Dragon Disclaimer: This electronic medical record was generated, in whole or in part, using a voice recognition dictation system. Departure Departure Impression: Primary Impression: Near syncope Additional Impressions: Suspected 2019 novel coronavirus infection UTI (urinary tract infection) Qualified Codes: N30.00 - Acute cystitis without hematuria Constipation Qualified Codes: K59.00 - Constipation, unspecified Methamphetamine abuse Disposition: HOME, SELF-CARE Condition: STABLE Referrals: NO PCP (PCP) Patient Instructions: Constipation, Adult, [id number], Near-Syncope, [id number]-[id number], Urinary Tract Infection, [id number], Viral Syndrome Additional Instructions: Please quarantine at home until test results for COVID19 are provided. Please take all antibiotics until gone. Increase fluid hydration. Scripts Polyethylene Glycol 3350 (MIRALAX) 119 Gm Powder 17 GM PO DAILY PRN for CONSTIPATION, #255 GM 0 Refills dissolve in water Prov: PRAMOD SMITH DO 10/15/19 Cephalexin (KEFLEX) 500 Mg Capsule 500 MG PO TID for 7 Days, #21 CAP Prov: PRAMOD SMITH DO 10/15/19 COVID-19 Assessment: COVID-19 Patient Risks: Age 65 or older: No Sign of co-morbidity: No Exp to person + for COVID: No Exp to PUI: No Travel from affected area: No Lower respiratory symptoms: Yes Fever: Yes PPE Use: Full PPE with N95 mask or PAPR: Yes PRAMOD SMITH DO October 15, 2019 16:55
[2019-10-15 16:56] VITALS: BP 103/64
[2019-10-15 16:56] LABS: INFLUENZA A PATIENT NEGATIVE (NEGATIVE); INFLUENZA B PATIENT NEGATIVE (NEGATIVE)
[2019-10-15 16:56] LABS: ANISOCYTOSIS SLIGHT; HYPOCHROMIA MOD; MICROCYTOSIS MOD; OVALOCYTES FEW
[2019-10-15] MEDS ORDERED: cefTRIAXone IV Push 1 GM VIAL. IVP ONE (17:00)
[2019-10-15] MEDS ORDERED: CEPH-264 PO (17:10)
[2019-10-15] MEDS ORDERED: POLY119P4 PO (17:12)
[2019-10-15 17:44] LABS: BARBITURATES NEG (NEG); BENZODIAZEPINES NEG (NEG); CANNABINOIDS NEG (NEG); COCAINE NEG (NEG); METHADONE NEG (NEG); OPIATES NEG (NEG); PHENCYCLIDINE NEG (NEG)
[2019-10-15 17:45] LABS: AMPHETAMINE/METHAMPHETAMINE POS (NEG)
--- NOTE | 2019-10-16 06:43 | EKG ---
[facility] [address] [place] [address] Test Date: 2019-10-15 Test Time: 15:56:10 Pat Name: TETO CORREA Department: Room: Gender: F [employer] Team Member: : 1975 Requested By: PRAMOD SMITH Order Number: [id number] Reading MD: Erich Decker Measurements Intervals [place] Rate: 110 P: 21 CT: 112 QRS: 26 QRSD: 80 T: -54 QT: 298 QTc: 408 Interpretive Statements SINUS TACHYCARDIA ST & T ABNORMALITY, CONSIDER ANTEROLATERAL ISCHEMIA OR LEFT VENTRICULAR STRAIN INFEROLATERAL ISCHEMIA OR LEFT VENTRICULAR STRAIN ABNORMAL ECG RI6.02 No previous ECG available for comparison Electronically Signed On 10-16-2019 8:41:38 CDT by Erich Decker
== END 2019-10-15 17:29 | disposition home or self-care (01) ==
LOC: ER 15:18
DX: R55 Syncope and collapse (principal); Z03.818 Encounter for observation for suspected exposure to other biological agents ruled out; R06.02 Shortness of breath; N30.00 Acute cystitis without hematuria; K59.00 Constipation, unspecified; F15.10 Other stimulant abuse, uncomplicated; Z87.891 Personal history of nicotine dependence; Z98.51 Tubal ligation status; Z88.2 Allergy status to sulfonamides; Z88.5 Allergy status to narcotic agent
CPT/HCPCS: 36415; 71045; 80053; 80307; 81001; 82553; 83605; 83735; 84484; 84703; 85025; 87086; 87635; 87804; 93005; 96361; 96374; 96375; 99285; J0696; J2060; J7030

== ENCOUNTER 2020-03-15 12:40 | Emergency (ER) | payer OTHER ==
[~2020-03-15] VITALS: Ht 160 cm; Wt 59.0 kg
[~2020-03-15 12:40] MED LIST changes: +CEPH-264 PO; +POLY119P4 PO
[2020-03-15] MEDS ORDERED: ONDANSETRON PF 4 MG/2 ML VIAL. IV ONE ×2 (13:15→15:45)
[2020-03-15] MEDS ORDERED: IV NORMAL SALINE 1000ML BAG 1,000 ML IV ONE (13:15)
[2020-03-15 13:44] LABS: BASO % 0 % (0-3); EOS % 0 % (0-3); HEMATOCRIT 31.1 % (36.0-47.0); HEMOGLOBIN 9.5 g/dL (12.0-15.5); LYMPH # 0.6 x10^3/uL (1.0-4.8); LYMPH % 17 % (24-48); MEAN CORPUSCULAR HEMOGLOBIN 20 pg (25-35); MEAN CORPUSCULAR HGB CONC 31 g/dL (31-37); MEAN CORPUSCULAR VOLUME 67 fL (79-100); MONO # 0.2 x10^3/uL (0.0-1.1); MONO % 7 % (0-9); NEUT # 2.4 x10^3/uL (1.8-7.7); NEUT % 75 % (31-73); PLATELET COUNT 224 x10^3/uL (140-400); RED BLOOD COUNT 4.67 x10^6/uL (3.50-5.40); RED CELL DISTRIBUTION WIDTH 17.9 % (11.5-14.5); WHITE BLOOD COUNT 3.2 x10^3/uL (4.0-11.0)
[2020-03-15 13:46] LABS: CALCIUM 8.8 mg/dL (8.5-10.1); CREATININE 0.7 mg/dL (0.6-1.0); GFR 90.1; POTASSIUM 3.7 mmol/L (3.5-5.1)
[2020-03-15 14:04] LABS: ALBUMIN 3.7 g/dL (3.4-5.0); ALBUMIN/GLOBULIN RATIO 0.9 (1.0-1.7); C-REACTIVE PROTEIN 2.8 mg/L (0-3.3); MAGNESIUM 2.2 mg/dL (1.8-2.4); TOTAL BILIRUBIN 0.4 mg/dL (0.2-1.0); TOTAL PROTEIN 7.9 g/dL (6.4-8.2)
--- NOTE | 2020-03-15 14:10 | PHYS DOC ---
Past Medical History Past Medical History: Alcoholism, Kidney Stone, Other Additional Past Medical Histor: ETOH ABUSE (DARIANA GRIFFITHS APRN) Past Surgical History: Tubal ligation, Other Additional Past Surgical Histo: SHOULDER SURGERY,KIDNEY STONE REMOVAL/STENT PLACEMENT & REMOVAL,EAR (DARIANA GRIFFITHS APRN) Smoking Status: Former Smoker Alcohol Use: Occasionally Drug Use: Marijuana (DARIANA GRIFFITHS APRN) General Adult EDM: Chief Complaint: CHEST PAIN HPI: HPI: Patient is a 44 year old female who presents to the emergency department via EMS today with complaints of right-sided chest pain that radiates to her right upper back, headache, shortness of breath, nausea, vomiting, fever, and fatigue that began 2 days ago. Patient denies any known exposure to COVID-19. She denies any abdominal pain, diarrhea, dysuria, hematuria, increased urinary frequency, or vision changes. She denies any numbness, tingling, or weakness of her extremities. Patient states that she vomited all day yesterday and has had dry heaves all day today. She also complains of having a dry cough at this time. She currently rates her pain a 10 out of 10 on the pain scale, she denies any alleviating factors the pain is worse with deep breath. The patient reports a history of anxiety, she states she feels very anxious at this time and is requesting medication for anxiety. (DARIANA GRIFFITHS PRINCIPAL ANDROID DEVELOPER) Review of Systems: Review of Systems: Constitutional: See HPI Eyes: Denies change in visual acuity. [] HENT: Denies nasal congestion or sore throat. [] Respiratory: See HPI Cardiovascular: Denies palpitations or edema; see HPI GI: See HPI : Denies dysuria. [] Musculoskeletal: Denies back pain or joint pain. [] Integument: Denies rash. [] Neurologic: Denies focal weakness or sensory changes. [] Lymphatic: Denies swollen glands. [] Psychiatric: Reports anxiety. (DARIANA GRIFFITHS APRN) Heart Score: HEART Score for Chest Pain: HEART Score for Chest Pain Response (Comments) Value History Slighlty/Non-Suspicious 0 ECG Nonspecific Repolarizatio 1 Age >45 - < 65 1 Risk Factors 1 or 2 Risk Factors 1 Troponin < Normal Limit 0 Total 3 Risk Factors: Risk Factors: DM, Current or recent (<one month) smoker, HTN, HLP, family history of CAD, obesity. Risk Scores: Score 0 - 3: 2.5% MACE over next 6 weeks - Discharge Home Score 4 - 6: 20.3% MACE over next 6 weeks - Admit for Clinical Observation Score 7 - 10: 72.7% MACE over next 6 weeks - Early Invasive Strategies (DARIANA GRIFFITHS APRN) Current Medications: Current Medications Medications (Trade) Dose Ordered Sig/Xavi Start Time Stop Time Status Last Admin Dose Admin Lorazepam (Ativan Inj) 1 mg 1X ONCE 03/15/20 13:15 03/15/20 13:17 DC 03/15/20 13:49 1 MG Ondansetron HCl (Zofran) 4 mg 1X ONCE 03/15/20 13:15 03/15/20 13:17 DC 03/15/20 13:49 4 MG Sodium Chloride 1,000 ml @ 1,000 mls/hr 1X ONCE 03/15/20 13:15 03/15/20 14:14 03/15/20 13:49 1,000 MLS/HR (DARIANA GRIFFITHS APRN) Allergies: Allergies: Allergies Coded Allergies Type Severity Reaction Last Updated Verified Sulfa (Sulfonamide Antibiotics) Allergy Intermediate Swelling 07/30/17 Yes prednisone Allergy Intermediate Hives 07/30/17 Yes codeine Adverse Reaction Intermediate Itching 07/30/17 Yes (DARIANA GRIFFITHS APRN) Physical Exam: PE: Constitutional: Well developed, well nourished, no acute distress, non-toxic appearance. [] HENT: Normocephalic, atraumatic, bilateral external ears normal, nose normal. [] Eyes: PERRLA, EOMI, conjunctiva normal, no discharge. [] Neck: Normal range of motion, no stridor. [] Cardiovascular:Heart rate regular rhythm Lungs & Thorax: Respirations even and unlabored, no retractions, no respiratory distress Abdomen: soft, no tenderness Skin: Warm, dry, no erythema, no rash. [] Extremities: No cyanosis, ROM intact, no edema. [] Neurologic: Alert and oriented X 3, no focal deficits noted. [] Psychologic: Affect anxious, judgement normal, mood normal. [] (DARIANA GRIFFITHS APRN) Current Patient Data: Labs: Laboratory Tests Test 03/15/20 13:15 White Blood Count 3.2 x10^3/uL (4.0-11.0) L Red Blood Count 4.67 x10^6/uL (3.50-5.40) Hemoglobin 9.5 g/dL (12.0-15.5) L Hematocrit 31.1 % (36.0-47.0) L Mean Corpuscular Volume 67 fL (79-100) L Mean Corpuscular Hemoglobin 20 pg (25-35) L Mean Corpuscular Hemoglobin Concent 31 g/dL (31-37) Red Cell Distribution Width 17.9 % (11.5-14.5) H Platelet Count 224 x10^3/uL (140-400) Neutrophils (%) (Auto) 75 % (31-73) H Lymphocytes (%) (Auto) 17 % (24-48) L Monocytes (%) (Auto) 7 % (0-9) Eosinophils (%) (Auto) 0 % (0-3) Basophils (%) (Auto) 0 % (0-3) Neutrophils # (Auto) 2.4 x10^3/uL (1.8-7.7) Lymphocytes # (Auto) 0.6 x10^3/uL (1.0-4.8) L Monocytes # (Auto) 0.2 x10^3/uL (0.0-1.1) Eosinophils # (Auto) 0.0 x10^3/uL (0.0-0.7) Basophils # (Auto) 0.0 x10^3/uL (0.0-0.2) Platelet Estimate Pending D-Dimer (Jessica) 0.39 ug/mlFEU (0.00-0.50) Sodium Level 136 mmol/L (136-145) Potassium Level 3.7 mmol/L (3.5-5.1) Chloride Level 100 mmol/L (98-107) Carbon Dioxide Level 28 mmol/L (21-32) Anion Gap 8 (6-14) Blood Urea Nitrogen 11 mg/dL (7-20) Creatinine 0.7 mg/dL (0.6-1.0) Estimated GFR (Cockcroft-Gault) 90.1 BUN/Creatinine Ratio 16 (6-20) Glucose Level 83 mg/dL (70-99) Calcium Level 8.8 mg/dL (8.5-10.1) Magnesium Level Pending Ferritin Pending Total Bilirubin Pending Aspartate Amino Transferase (AST) Pending Alanine Aminotransferase (ALT) Pending Alkaline Phosphatase Pending Creatine Kinase Pending C-Reactive Protein, Quantitative Pending Total Protein Pending Albumin Pending Albumin/Globulin Ratio Pending Lipase Pending Laboratory Tests 03/15/20 13:15 Laboratory Tests 03/15/20 13:15 Vital Signs: Vital Signs Date Time Temp Pulse Resp B/P (MAP) Pulse Ox O2 Delivery O2 Flow Rate FiO2 03/15/20 14:00 116 101/63 (76) 98 Room Air 03/15/20 12:59 99.3 22 99.3 (DARIANA GRIFFITHS APRN) EKG: EK-sinus rhythm, rate of 98, ST and T abnormality consider inferior ischemia or left ventricular strain, no STEMI, read by Dr. Ramirez [] (DARIANA GRIFFITHS APRN) Radiology/Procedures: Radiology/Procedures: PROCEDURE: CHEST AP ONLY Examination: CHEST AP ONLY History: Reason: n/v, cough, PUI / Comparison: None. Findings: AP portable upright frontal view of the chest was obtained. The cardiomediastinal silhouette is normal. Lungs are clear. There is no pneumothorax. No pleural effusion is appreciated. No acute bone abnormality. Old right clavicular fracture. Postoperative changes of the distal left clavicle. IMPRESSION: No acute cardiopulmonary process. [] (DARIANA GRIFFITHS APRN) Course & Med Decision Making: Course & Med Decision Making Pertinent Labs and Imaging studies reviewed. (See chart for details) 44-year-old female presents emergency department with complaints of right-sided chest pain, nausea, vomiting, dry heaves. Heart score is a 3 EKG revealed non-specific changes, no STEMI Chest x-ray revealed no acute cardiopulmonary process. Labs revealed a white blood cell count of 3.2, hemoglobin 9.5, hematocrit of 31.1 otherwise unremarkable; d-dimer within normal limits; CMP was unremarkable, CK was not elevated, CRP is not elevated; UA is likely contaminated; urine drug screen is positive for methamphetamines and cannabinoids; rapid influenza is negative, COVID-19 test is pending While in the emergency department the patient was given 4 mg of Zofran, 30 mg of Toradol, and a liter of normal saline. She reported feeling better after these medications. I discussed results with patient I advised her of the likelihood of COVID-19 test being positive. Patient continued to deny use of amphetamines, I advised her of the presence of amphetamines and cannabinoids in her urine. I encouraged her to go home and quarantine follow the quarantine instructions provided discharge instructions until results of the tests are known and she is asymptomatic. Encouraged her to follow-up with her primary care doctor this week, return to the ER symptoms worsen. COVID-19 CRITERIA: The patient was evaluated during the global COVID-19 p andemic, and that diagnosis was suspected/considered upon their initial presentation. Their evaluation, treatment and testing was consistent with current guidelines for patients who present with complaints or symptoms that may be related to COVID-19. [] (DARIANA GRIFFITHS APRN) Course & Med Decision Making I have reviewed the PA/HEALTHCARE MANAGEMENT's note and Plan of Care. I was available for consultation as needed during the patient's visit in the emergency department. I agree with the clinical impression, plans and disposition. (LISSETH RAMIREZ MD) Dragon Disclaimer: Dragon Disclaimer: This electronic medical record was generated, in whole or in part, using a voice recognition dictation system. (DARIANA GRIFFITHS APRN) Departure Departure Impression: Primary Impression: Methamphetamine abuse Additional Impressions: Person under investigation for COVID-19 Chest pain with painful respiration Disposition: 01 [place] [facility]/HOMELESS Referrals: NO PCP (PCP) Patient Instructions: Methamphetamine Abuse, Complications, Upper Respiratory Infection, Adult, [id number] Additional Instructions: You have been tested for or diagnosed with COVID-19. It is an infection caused by a new type of coronavirus. COVID-19 will cause cold-like or mild flu symptoms in most. It can cause more severe symptoms like problems breathing in some. There is no treatment for COVID-19. The body will clear the infection over time. Self-care will help to ease discomfort. Steps to Take: Self-Care Rest as needed. Healthy habits may help you feel better. Steps include: Choose healthy foods including fruits and vegetables. Drink water throughout the day. Get plenty of sleep each night. If you smoke, try to quit. It may ease breathing. Avoid alcohol. Keep Others Healthy The virus can spread to others. Droplets are released every time you sneeze or cough. The droplets can get into the mouth, nose, or eyes of people near you and lead to infection. To lower the chances of spreading COVID-19 to others: Stay at home until your doctor has said it is safe to leave. If you tested positive this will mean staying isolated until both of the following are true: At least 7 days have passed since the start of illness. You are free of fever for at least 72 hours without the use of medicine. During this time: - Avoid public areas, events, or transportation. Do not return to work or school until your doctor has said it is safe to do so. - Call ahead if you need to go to a medical center. Let them know you may have COVID-19. It will help them guide you where to go. They may also ask you to wear a facemask when you come to the office. - If you call for emergency medical services, let them know you may have COVID- 19. While at home: - Try to avoid close contact with others. Stay about 6 feet away. - If possible, spend most of your time in a separate room from others. - Use a face mask if you will be in close contact with others such as sharing a room or vehicle. - Have someone wipe down common surfaces in the home. Use household care specialist every day on areas like doorknobs, counters, or sinks. - Cough or sneeze into a tissue. Throw the tissue away right after use. If a tissue is not available, cough or sneeze into your elbow. - Wash your hands often. Wash them after sneezing or coughing. Use soap and water and wash for at least 20 seconds. Alcohol based hand pipe cleaner can be used if soap and water is not available. - Do not prepare food for others. Avoid sharing personal items like forks, spoons, or toothbrushes. - Avoid close contact with pets while you are sick. There is no evidence of the virus passing to pets. This is a safety step until more is known about this virus. Isolation can be frustrating. Social interaction can help. Keep in touch with fr iends and family through phone and tech options. You can still interact with others in your home, just keep a safe distance of about 6 feet. Follow-up: Your doctors office will check in with you to see if there are any changes in your health. You may be asked to keep track of symptoms to share with them. They will also let you know when you are clear to be in public again. Problems to Look Out For: Contact your doctor if your recovery is not going as you expect. Get emergency care if you have problems such as: - Trouble breathing - Nonstop chest pain or pressure - Changes in awareness, confusion, or problems waking - Lips or face have bluish color - Worsening of symptoms If you think you have an emergency, call for emergency medical services right away. As taken from [facility] DARIANA GRIFFITHS APRN Mar 15, 2020 14:10 LISSETH RAMIREZ MD Mar 16, 2020 19:45
--- NOTE | 2020-03-15 14:14 | RAD ---
Examination: CHEST AP ONLY History: Reason: n/v, cough, PUI / Comparison: None. Findings: AP portable upright frontal view of the chest was obtained. The cardiomediastinal silhouette is normal. Lungs are clear. There is no pneumothorax. No pleural effusion is appreciated. No acute bone abnormality. Old right clavicular fracture. Postoperative changes of the distal left clavicle. IMPRESSION: No acute cardiopulmonary process. Electronically signed by: Armando Hodges MD (03/15/2020 2:11 PM) [facility]
[2020-03-15 14:15] LABS: BILIRUBIN,URINE NEGATIVE (NEG); CLARITY,URINE CLEAR; COLOR,URINE YELLOW; NITRITE,URINE NEGATIVE (NEG); PROTEIN,URINE NEGATIVE (NEG-TRACE); UROBILINOGEN,URINE 0.2 mg/dL (0.2 mg/dL)
[2020-03-15 14:20] LABS: BARBITURATES NEG (NEG); BENZODIAZEPINES NEG (NEG); CANNABINOIDS POS (NEG); COCAINE NEG (NEG); METHADONE NEG (NEG); OPIATES NEG (NEG); PHENCYCLIDINE NEG (NEG)
[2020-03-15 14:24] LABS: BACTERIA,URINE MODERATE /HPF (0-FEW)
[2020-03-15 14:25] LABS: RBC,URINE 0 /HPF (0-2)
[2020-03-15 14:31] LABS: AMPHETAMINE/METHAMPHETAMINE POS (NEG)
[2020-03-15 14:37] LABS: ANISOCYTOSIS SLIGHT; HYPOCHROMIA MARKED; MICROCYTOSIS MARKED; OVALOCYTES FEW; PLT ESTIMATE ADEQUATE (ADEQUATE); POIKILOCYTOSIS SLIGHT
[2020-03-15 15:22] LABS: U PREG PATIENT NEGATIVE (NEG)
[2020-03-15 15:36] LABS: INFLUENZA A PATIENT NEGATIVE (NEGATIVE); INFLUENZA B PATIENT NEGATIVE (NEGATIVE)
[2020-03-15] MEDS ORDERED: KETOROLAC 30 MG/ML VIAL. IV ONE (15:45)
[2020-03-15 16:55] VITALS: BP 114/67
--- NOTE | 2020-03-16 11:31 | NUR ---
IP: Attempted to call COVID results to pt. No answer. Left a voicemail to return the call.
--- NOTE | 2020-03-18 10:07 | NUR ---
IP: Pt returned my call. I informed her of the positive COVID test and need to quarantine for 14 days from data of test. Pt verbalized understanding. All questions answered.
== END 2020-03-15 18:07 | disposition home or self-care (01) ==
LOC: ER 12:40
DX: U07.1 COVID-19 (principal); F15.10 Other stimulant abuse, uncomplicated; R07.1 Chest pain on breathing; Z87.891 Personal history of nicotine dependence; Z95.5 Presence of coronary angioplasty implant and graft; Z88.2 Allergy status to sulfonamides; Z88.5 Allergy status to narcotic agent
CPT/HCPCS: 36415; 71045; 80053; 80307; 81001; 81025; 82550; 82728; 83690; 83735; 85025; 85379; 86140; 87086; 87804; 96361; 96374; 96375; 96376; 99285; C9803; J1885; J2060; J2405; J7030; U0003